=== PATIENT | male | born 1990 | race Caucasian/White ===

== ENCOUNTER 2017-07-25 15:14 | Inpatient (IN) | payer OTHER ==
[~2017-07-25] VITALS: Ht 185.4 cm; Wt 70.5 kg
[2017-07-25] VITALS (13 sets, daily range): BP systolic 103–128; BP diastolic 47–68; PULSE 66–92; RESP 10–19; TEMP 98; Ht 185.4 cm; Wt 70.5 kg
[2017-07-25] MEDS ORDERED: ONDANSETRON 4 MG INJ IV STA (15:40)
[2017-07-25] MEDS ORDERED: HYDROmorphONE 1 MG/ML SYG IV STA (15:40)
[2017-07-25] MEDS ORDERED: SOD CHLORIDE 0.9% 1,000 ML IV STA (15:40)
[2017-07-25] MEDS ORDERED: ACETAMINOPHEN 500 MG TAB PO STA (15:41)
[2017-07-25 16:02] LABS: ABNORMAL IP MESSAGE 1; BASOPHILS % 0.2 % (0.0-2.0); HEMATOCRIT 42.9 % (42.0-52.0); LYMPHOCYTES # 1.3 10^3/ul (0.8-2.9); MEAN CORPUSCULAR HEMOGLOBIN 29.1 pg (29.0-33.0); MEAN CORPUSCULAR VOLUME 83.1 fl (82.0-101.0); MEAN PLATELET VOLUME 9.9 fl (7.4-10.4); MONOCYTE # 2.1 10^3/ul (0.3-0.9); MONOCYTES % 9.6 % (0.0-11.0); NEUTROPHIL # 18.3 10^3/ul (1.6-7.5); NEUTROPHILS % 83.7 % (39.0-77.0); PLATELET COUNT 180 10^3/UL (140-415); POSITIVE DIFF @See below; RED BLOOD COUNT 5.16 10^6/ul (4.70-6.10); RED CELL DISTRIBUTION WIDTH 12.4 % (11.5-14.5); WHITE BLOOD COUNT 21.9 10^3/ul (4.8-10.8)
--- NOTE | 2017-07-25 16:02 | ERD ---
ER Documentation Chief Complaint Date/Time DATE: 07/25/17 TIME: 15:56 Chief Complaint pt bib family with c/o right sided abd pain with vomiting since this am HPI 27-year-old male presents to the emergency department complaining of severe sharp constant right lower quadrant abdominal pain since this morning. Patient states that it has started in the umbilical region and migrated to the right. He admits to chills/fever, nonbilous nonbloody vomiting, decreased appetite. Last meal 6a ROS All systems reviewed and are negative except as per history of present illness. Allergies Allergies: Coded Allergies: No Known Allergy (Unverified , 07/25/17) Physical Exam Vitals Vital Signs Date Time Temp Pulse Resp B/P Pulse Ox O2 Delivery O2 Flow Rate FiO2 07/25/17 15:17 99.8 89 18 132/83 99 Physical Exam Const: WDWN NAD Head: Atraumatic Eyes: Normal Conjunctiva ENT: Normal External Ears, Nose and Mouth. Neck: Full range of motion..~ No meningismus. Resp: Clear to auscultation bilaterally Cardio: Regular rate and rhythm, no murmurs Abd: Soft, tender to palpation RLQ, +mcburney's, rebound tenderness. non distended. Normal bowel sounds Skin: No petechiae or rashes Back: No midline or flank tenderness Ext: No cyanosis, or edema Neur: Awake and alert Psych: Normal Mood and Affect Result Diagram: 07/25/17 1555 07/25/17 1555 Results 24 hrs Laboratory Tests Test 07/25/17 15:55 White Blood Count 21.910^3/ul Red Blood Count 5.1610^6/ul Hemoglobin 15.0g/dl Hematocrit 42.9% Mean Corpuscular Volume 83.1fl Mean Corpuscular Hemoglobin 29.1pg Mean Corpuscular Hemoglobin Concent 35.0g/dl Red Cell Distribution Width 12.4% Platelet Count 48614^3/UL Mean Platelet Volume 9.9fl Neutrophils % 83.7% Lymphocytes % 6.0% Monocytes % 9.6% Eosinophils % 0.0% Basophils % 0.2% Nucleated Red Blood Cells % 0.0/100WBC Neutrophils # 18.310^3/ul Lymphocytes # 1.310^3/ul Monocytes # 2.110^3/ul Eosinophils # 0.010^3/ul Basophils # 0.010^3/ul Nucleated Red Blood Cells # 0.010^3/ul Sodium Level 140mmol/L Potassium Level 4.2mmol/L Chloride Level 103mmol/L Carbon Dioxide Level 26mmol/L Anion Gap 15 Blood Urea Nitrogen 22mg/dl Creatinine 1.13mg/dl Glucose Level 155mg/dl Calcium Level 9.8mg/dl Total Bilirubin 1.5mg/dl Direct Bilirubin 0.00mg/dl Indirect Bilirubin 1.5mg/dl Aspartate Amino Transf (AST/SGOT) 34IU/L Alanine Aminotransferase (ALT/SGPT) 43IU/L Alkaline Phosphatase 109IU/L Total Protein 8.3g/dl Albumin 4.8g/dl Globulin 3.50g/dl Albumin/Globulin Ratio 1.37 Lipase 65U/L Current Medications Medications (Trade) Dose Ordered Sig/Jennifer Route PRN Reason Start Time Stop Time Status Last Admin Dose Admin Sodium Chloride (NS) 1,000 ml @ 1,000 mls/hr Q1H STAT IV 07/25/17 15:40 07/25/17 16:39 DC 07/25/17 15:58 Hydromorphone HCl (Dilaudid) 1 mg ONCE STAT IV 07/25/17 15:40 07/25/17 15:41 DC 07/25/17 15:58 Ondansetron HCl (Zofran Inj) 4 mg ONCE STAT IV 07/25/17 15:40 07/25/17 15:41 DC 07/25/17 15:58 Acetaminophen 1000 mg 1,000 mg ONCE STAT PO 07/25/17 15:41 07/25/17 15:42 DC 07/25/17 16:02 Piperacillin Sod/ Tazobactam Sod (Zosyn 3.375gm/ 100 ml (Pmx)) 100 ml @ 200 mls/hr ONCE STAT IVPB 07/25/17 16:43 07/25/17 17:12 Procedures/MDM 27-year-old male presents to emergency department with early appendicitis, there is no evidence of abscess or perforation. Patient is aseptic and stable at this time In the ED, IV access established, patient was given 1 L of fluids, Dilaudid and Zofran. Lab work was drawn,patient had leukocytosis. No liver, renal or electrolyte abnormality. I have consulted my supervising physician who will consult for surg and admit to panel CT abd pelvis without contrast 1. Mildly enlarged appendix containing appendicolith with subtle surrounding inflammatory changes. This could represent early appendicitis. Clinical correlation and repeat scan with contrast would be useful. 2. Mild atrophy of the left kidney. No urolithiasis. No hydronephrosis. Departure Diagnosis: Primary Impression: Appendicitis Condition: Serious HUSEYIN POWERS PA-C Jul 25, 2017 16:02
[2017-07-25 16:23] LABS: ALBUMIN 4.8 g/dl (3.3-4.9); ALBUMIN/GLOBULIN RATIO 1.37; BILIRUBIN,INDIRECT 1.5 mg/dl (0-1.1); BILIRUBIN,TOTAL 1.5 mg/dl (0.2-1.3); CALCIUM 9.8 mg/dl (8.4-10.2); CREATININE 1.13 mg/dl (0.61-1.24); POTASSIUM 4.2 mmol/L (3.5-5.1); TOTAL PROTEIN 8.3 g/dl (6.1-8.1)
--- NOTE | 2017-07-25 16:26 | RADRPT ---
PROCEDURE: CT Abdomen and Pelvis without contrast. CLINICAL INDICATION: Abdominal pain with nausea. TECHNIQUE: CT scan of the abdomen and pelvis without contrast was performed on a multidetector hig h-resolution CT scanner. The patient was scanned without intravenous contrast. Coronal and sagittal reformatted images were obtained from the axial source images. Images were reviewed on a high-resol Interactive [employer] PACS workstation. The total exam CTDI equals 6.47 mGy and the total exam DLP equals 371.85 mGy -cm. One or more of the following dose reduction techniques were used: Automated exposure control. Adjustment of the mA and/or kV according to patient size. Use of iterative reconstruction technique. COMPARISON: None FINDINGS: CT abdomen: The lung bases are clear. The heart size is normal, without pericardial thickening or effusion. Th e liver is normal in size and density without focal mass or intrahepatic biliary dilatation. The sp demar is normal in size and homogeneous in density. The stomach is partially collapsed, but is gross ly unremarkable. The pancreas as visualized is normal. The gallbladder is unremarkable. There is n o evidence for biliary dilatation. The adrenal glands are symmetric and normal. There is mild atrophy of the left kidney. There is no urolithiasis. There is no hydronephrosis. No c ontour deforming renal mass is identified. The aorta is of normal caliber. There is no retroperitoneal lymphadenopathy. The altagracia hepatis reg ion is clear. The bowel and mesentery, as visualized, are equally unremarkable. CT pelvis: Mildly enlarged appendix containing appendicolith with subtle surrounding inflammatory changes are i dentified. The small bowel loops situated within the pelvis are unremarkable. The pelvic organs are normal. The pelvic sidewalls and inguinal regions are clear. The sigmoid colon and rectum are unr emarkable. No mass, lymphadenopathy, or free fluid is seen. No acute inflammation is seen. No os teolytic or osteoblastic lesion is detected. IMPRESSION: The study is very limited due to absence of intra-abdominal fat, IV and oral contrast. 1. Mildly enlarged appendix containing appendicolith with subtle surrounding inflammatory changes. This could represent early appendicitis. Clinical correlation and repeat scan with contrast would be useful. 2. Mild atrophy of the left kidney. No urolithiasis. No hydronephrosis. RPTAT: BB .Rula Cisneros MD, MD Date Time Electronically viewed and signed by .Rula Cisneros MD, MD on 07/25/2017 16:25 .O/
[2017-07-25] MEDS ORDERED: PIPER-TAZO 3.375 GM IV (PMX) 100 ML IVPB STA (16:43)
--- NOTE | 2017-07-25 17:11 | HP ---
Date/Time of Note Date/Time of Note DATE: 07/25/17 TIME: 17:08 Assessment/Plan VTE Prophylaxis VTE Prophylaxis Intervention: SCD's Assessment/Plan Chief Complaint/Hosp Course 1. Sepsis secondary to acute appendicitis Surgery consult obtained in the ER Zosyn IV Pain control N.p.o. and IV fluid Prophylaxis: SCDs Problems: HPI/ROS Admit Date/Time Admit Date/Time July 25, 2017 Hx of Present Illness Patient is a 27-year-old male with medical history of ureteral surgery at the age of 5 otherwise no significant medical history. Patient presents with abdominal pain in the right lower quadrant that began this morning, it was associated with nausea and vomiting. In the ED patient was found to have acute appendicitis via CT. Patient has no other complaints this time. ROS Constitutional: improved, no complaints Eyes: no complaints ENT: no complaints Respiratory: no complaints Cardiovascular: no complaints Gastrointestinal: nausea, pain, vomiting Genitourinary: no complaints Musculoskeletal: no complaints Skin: no complaints Neurologic: no complaints Endocrine: no complaints Lymphatic: no complaints Psychological: nl mood/affect, no complaints Immunologic: no complaints PMH/Family/Social Past Medical History Medical History: no pertinent history Past Surgical History Surgery of the ureter age of 5 Family History Significant Family History: no pertinent family hx Social History Alcohol Use: none Smoking Status: Never smoker Drug Use: none Exam/Review of Systems Vital Signs Vitals Vital Signs Date Time Temp Pulse Resp B/P Pulse Ox O2 Delivery O2 Flow Rate FiO2 07/25/17 15:17 99.8 89 18 132/83 99 Exam Constitutional: alert, oriented Head: normocephalic Respiratory: clear to auscultation Cardiovascular: regular rate and rhythm Gastrointestinal: soft, tender (Right lower quadrant), No distended Musculoskeletal: nl extremities to inspection Labs Result Diagram: 07/25/17 1555 07/25/17 1555 LUIS HUDSON Jul 25, 2017 17:11
[2017-07-25] MEDS ORDERED: NACL 0.9% 3 ML SYG IV SCH (17:30)
[2017-07-25] MEDS ORDERED: HYDROCODONE/APAP (5/325) TAB PO PRN (17:30)
[2017-07-25] MEDS ORDERED: morphine 2 MG INJ IV PRN ×2 (17:30→19:30)
[2017-07-25] MEDS ORDERED: ONDANSETRON 4 MG INJ IV PRN ×3 (17:30→19:30)
[2017-07-25] MEDS ORDERED: ACETAMINOPHEN 325 MG TAB PO PRN (17:30)
[2017-07-25] MEDS ORDERED: ZOLPIDEM 5 MG TAB PO PRN (17:30)
[2017-07-25 17:54] LABS: INR 1.17; PT RATIO 1.2
[2017-07-25] MEDS ORDERED: MIDAZOLAM 1 MG/ML 2 ML INJ ONE (17:54)
[2017-07-25] MEDS ORDERED: ROCURONIUM 50 MG INJ ONE (17:54)
[2017-07-25] MEDS ORDERED: ROPIVACAINE 0.2% 20 ML VIAL ONE (17:54)
[2017-07-25] MEDS ORDERED: PROPOFOL 20 ML ONE (17:54)
[2017-07-25 17:55] LABS: PARTIAL THROMBOPLASTIN TIME 25.1 Sec (25.0-35.0)
[2017-07-25] MEDS ORDERED: BUPIVACAINE 0.5%/EPI (SDV) 30 ML INJ ONE (18:00)
--- NOTE | 2017-07-25 18:24 | CONS ---
Date/Time of Note Date/Time of Note DATE: 07/25/17 TIME: 18:19 Assessment/Plan Assessment/Plan Additional Assessment/Plan Acute appendicitis Plan: Laparoscopic appendectomy possible open. The procedure, outcomes, indications, alternatives and risks have been detailed to the patient who has an excellent understanding of the nature of his situation and agrees to the proposed plan of therapy as outlined. Consultation Date/Type/Reason Admit Date/Time July 25, 2017 Date of Consultation: Jul 25, 2017 Reason for Consultation Acute appendicitis Hx of Present Illness The patient is an otherwise healthy 27-year-old male who presents with 1 day history of abdominal pain which had intensified in severity than localized to the right lower quadrant. The emergency room his white blood cell count was 21, 900, and CT was compatible with acute appendicitis. The patient was admitted, and surgical consultation was requested in that regard. Eyes: no complaints ENT: no complaints Respiratory: no complaints Cardiovascular: no complaints Gastrointestinal: nausea, pain (Right lower quadrant), vomiting Genitourinary: no complaints Musculoskeletal: no complaints Skin: no complaints Neurologic: no complaints Lymphatic: no complaints Psychological: nl mood/affect, no complaints Immunologic: no complaints Past Medical History Medical History: no pertinent history Past Surgical History Patient had ureteral surgery during childhood Family History Significant Family History: no pertinent family hx Social History Alcohol Use: none Smoking Status: Never smoker Drug Use: none, marijuana Exam/Review of Systems Vital Signs Vitals Vital Signs Date Time Temp Pulse Resp B/P Pulse Ox O2 Delivery O2 Flow Rate FiO2 07/25/17 17:00 98.0 70 20 101/54 98 Room Air Exam Constitutional: alert Psych: no complaints Head: normocephalic Eyes: nl conjunctiva ENMT: nl external ears & nose Neck: supple Respiratory: clear to auscultation Cardiovascular: regular rate and rhythm Gastrointestinal: other (There is a well-healed Pfannenstiel incision), tender (Tender right lower quadrant with guarding but no rebound) Genitourinary - Male: nl penis Musculoskeletal: nl extremities to inspection Extremities: normal pulses Neurological: VAMP MARKER II-XII intact Skin: nl turgor Lymph: nl lymph nodes Results Result Diagram: 07/25/17 1555 07/25/17 1555 Results 24 hrs Laboratory Tests Test 07/25/17 15:55 White Blood Count 21.9 H Red Blood Count 5.16 Hemoglobin 15.0 Hematocrit 42.9 Mean Corpuscular Volume 83.1 Mean Corpuscular Hemoglobin 29.1 Mean Corpuscular Hemoglobin Concent 35.0 Red Cell Distribution Width 12.4 Platelet Count 180 Mean Platelet Volume 9.9 Neutrophils % 83.7 H Lymphocytes % 6.0 L Monocytes % 9.6 Eosinophils % 0.0 Basophils % 0.2 Nucleated Red Blood Cells % 0.0 Neutrophils # 18.3 H Lymphocytes # 1.3 Monocytes # 2.1 H Eosinophils # 0.0 Basophils # 0.0 Nucleated Red Blood Cells # 0.0 Prothrombin Time 15.0 H Prothrombin Time Ratio 1.2 INR International Normalized Ratio 1.17 Activated Partial Thromboplast Time 25.1 Sodium Level 140 Potassium Level 4.2 Chloride Level 103 Carbon Dioxide Level 26 Anion Gap 15 Blood Urea Nitrogen 22 H Creatinine 1.13 Glucose Level 155 Calcium Level 9.8 Total Bilirubin 1.5 H Direct Bilirubin 0.00 Indirect Bilirubin 1.5 H Aspartate Amino Transf (AST/SGOT) 34 Alanine Aminotransferase (ALT/SGPT) 43 Alkaline Phosphatase 109 Total Protein 8.3 H Albumin 4.8 Globulin 3.50 H Albumin/Globulin Ratio 1.37 Lipase 65 Medications Medications Current Medications Potassium Chloride/Dextrose/ Sod Cl (D5-1/2ns + KCl 20 Meq) 1,000 ml @ 100 mls/ hr Q10H IV ; Start 07/25/17 at 17:11 Ondansetron HCl (Zofran Inj) 4 mg Q6H PRN IV NAUSEA AND/OR VOMITING; Start at 17:30 Acetaminophen (Tylenol Tab) 650 mg Q6H PRN PO PAIN LEVEL 1-3 OR FEVER; Start at 17:30 Acetaminophen/ Hydrocodone Bitart ([place] (5/325)) 1 tab Q6H PRN PO MODERATE PAIN LEVEL 4-6; Start 07/25/17 at 17:30 Morphine Sulfate (morphine) 2 mg Q3 PRN IV SEVERE PAIN LEVEL 7-10; Start at 17:30 Zolpidem Tartrate 5 mg 5 mg QHS PRN PO SLEEP; Start 07/25/17 at 17:30 Piperacillin Sod/ Tazobactam Sod (Zosyn 3.375gm/ 100 ml (Pmx)) 100 ml @ 200 mls /hr Q6 IVPB ; Start 07/26/17 at 00:00 SAL AYALA MD Jul 25, 2017 18:24
--- NOTE | 2017-07-25 18:35 | QN ---
Documentation Comment I have seen and evaluated the patient along with the PA and/or [facility] PATROLLER provider. I agree with the evaluation and plan of care. Please see their documentation for full ER course and evaluation. Initial presentation: The patient presents with right lower quadrant abdominal pain On exam: General: Well-developed well-nourished man, moderate discomfort, febrile Abdominal: Focal tenderness the right lower quadrant with a positive Cunha sign Assessment and plan: Suspect acute appendicitis, CT scan of the abdomen and pelvis was performed that was positive for acute appendicitis, labs revealed leukocytosis, and patient was treated with IV fluids, analgesics, and IV Zosyn. Accepting care team and consultations: I discussed the current laboratory data, diagnostic imaging and emergency care provided. Admitting team: Dr. Fuller Admitting team indication: Insurance directed Consulting services: Surgery, Dr. Albrecht Diagnostic impression: Acute appendicitis YE STUART MD Jul 25, 2017 18:35
[2017-07-25] MEDS ORDERED: DEXAMETHASONE 4 MG/ML 1 ML INJ ONE (18:59)
[2017-07-25] MEDS ORDERED: KETOROLAC 30 MG INJ ONE (18:59)
[2017-07-25] MEDS ORDERED: CEFAZOLIN 1 GM INJ ONE (18:59)
[2017-07-25] MEDS ORDERED: ONDANSETRON 4 MG INJ ONE ×2 (18:59→19:31)
[2017-07-25] MEDS ORDERED: METOCLOPRAMIDE 10 MG INJ ONE (18:59)
[2017-07-25] MEDS ORDERED: NEOSTIGMINE 3 MG/3 ML SYRINGE ONE (19:02)
[2017-07-25] MEDS ORDERED: GLYCOPYRROLATE 0.4 MG INJ ONE (19:02)
[2017-07-25] MEDS ORDERED: MEPERIDINE 100 MG INJ ONE (19:12)
--- NOTE | 2017-07-25 19:17 | OPR ---
Date/Time of Note Date/Time of Note DATE: 07/25/17 TIME: 19:13 Operative Report Procedure Date: Jul 25, 2017 Preoperative Diagnosis Acute appendicitis Postoperative Diagnosis Acute appendicitis without localized peritonitis Operation Performed Laparoscopic appendectomy Surgeon Aquilino Ayala MD Anesthesia Type: general Anesthesiologist: JERMAIN MELTON MD Estimated Blood Loss: 0 - 10 ml's Transfusion Required: no Specimens Appendix Grafts/Implants: none Complications: no Pt Condition Post Procedure: stable Disposition: PACU Indications Acute appendicitis Operative\Procedure Findings Acutely inflamed intraperitoneal appendix without localized peritonitis Procedure Description After satisfactory general endotracheal anesthesia was achieved, the abdomen was insufflated with carbon dioxide through an umbilical Veress needle to 15 mmHg pressure. Veress needle was removed and the umbilical incision extended to 5 mm through which a 5 mm trocar was placed. A 5 mm 0 lens was placed. Laparoscopy showed an acutely inflamed into peritoneal appendix without localized peritonitis. Under direct visualization a 5 mm suprapubic trocar was placed through the middle of the Pfannenstiel scar. A 12 mm trocar was placed through the transverse scar midway between the umbilicus and the Pfannenstiel incision. A window was made in the mesoappendix through which a vascular linear cutter was placed across the base of the cecum, closed and fired, disconnecting the appendix from the cecum. 2 more firings of the vascular linear cutter across the mesoappendix fully freed the appendix. The appendix was placed intact into an Endo Catch removed by the 12 mm port site. Hemostasis of the staple lines was total and irrigant returned clear. The abdomen was then desufflated and the trochars removed. Fascial defect at the 12 mm port site was closed with 2 sutures of 0 Vicryl. The skin punctures were infiltrated with 30 cc of 0.5% Marcaine with epinephrine and closed with faith. Sponge and needle counts were reported as correct 2. AQUILINO AYALA MD Jul 25, 2017 19:17
[2017-07-25] MEDS ORDERED: METOCLOPRAMIDE 10 MG INJ IV PRN (19:30)
[2017-07-25] MEDS ORDERED: DIPHENHYDRAMINE 50 MG INJ IV PRN (19:30)
[2017-07-25] MEDS ORDERED: FENTAnyl 50 MCG/ML VIAL IV PRN ×3 (19:30)
[2017-07-25] MEDS ORDERED: LABETALOL HCL 20MG INJ IV PRN (19:30)
[2017-07-25] MEDS ORDERED: MEPERIDINE 25 MG INJ IV PRN (19:30)
[2017-07-25] MEDS ORDERED: HYDROmorphONE (0.2 MG/ML) 10ML SYG IV PRN ×3 (19:30)
[2017-07-25] MEDS ORDERED: EPHEDrine SULFATE 50 MG/5 ML SYG IV PRN (19:30)
[2017-07-25] MEDS ORDERED: OXYCODONE/ACETAMINOPHEN (5/325) TAB PO PRN ×2 (19:30)
[2017-07-25] MEDS ORDERED: MEPERIDINE 25 MG INJ ONE (19:30)
[2017-07-25] MEDS ORDERED: HYDROmorphONE (0.2 MG/ML) 10ML SYG IV ONE (19:31)
[2017-07-25] MEDS: D5W-0.45 NACL + KCL 20 MEQ 1,000 ML IV SCH (19:51)
[2017-07-25] MEDS: PIPER-TAZO 3.375 GM IV (PMX) 100 ML IVPB SCH (23:49)
[2017-07-26 01:57] VITALS: BP 97/54; RESP 16
[2017-07-26] MEDS: PIPER-TAZO 3.375 GM IV (PMX) 100 ML IVPB SCH ×2 (05:29→12:00)
[2017-07-26 06:32] LABS: BASOPHILS % 0.1 % (0.0-2.0); HEMATOCRIT 38.1 % (42.0-52.0); HEMOGLOBIN 13.3 g/dl (14.0-18.0); LYMPHOCYTES # 0.6 10^3/ul (0.8-2.9); LYMPHOCYTES % 4.9 % (15.0-51.0); MEAN CORPUSCULAR HEMOGLOBIN 30.1 pg (29.0-33.0); MEAN CORPUSCULAR HGB CONC 34.9 g/dl (32.0-37.0); MEAN CORPUSCULAR VOLUME 86.2 fl (82.0-101.0); MEAN PLATELET VOLUME 10.7 fl (7.4-10.4); MONOCYTE # 1.1 10^3/ul (0.3-0.9); MONOCYTES % 9.1 % (0.0-11.0); NEUTROPHIL # 10.5 10^3/ul (1.6-7.5); NEUTROPHILS % 85.4 % (39.0-77.0); PLATELET COUNT 154 10^3/UL (140-415); RED BLOOD COUNT 4.42 10^6/ul (4.70-6.10); RED CELL DISTRIBUTION WIDTH 12.5 % (11.5-14.5); WHITE BLOOD COUNT 12.3 10^3/ul (4.8-10.8)
[2017-07-26] MEDS: D5W-0.45 NACL + KCL 20 MEQ 1,000 ML IV SCH ×2 (06:47→13:11)
[2017-07-26 07:10] LABS: ALBUMIN 3.6 g/dl (3.3-4.9); ALBUMIN/GLOBULIN RATIO 1.09; BILIRUBIN,INDIRECT 1.1 mg/dl (0-1.1); BILIRUBIN,TOTAL 1.1 mg/dl (0.2-1.3); CALCIUM 9.2 mg/dl (8.4-10.2); CREATININE 1.04 mg/dl (0.61-1.24); MAGNESIUM 1.9 mg/dl (1.7-2.5); PHOSPHORUS 4.6 mg/dl (2.5-4.9); POTASSIUM 4.7 mmol/L (3.5-5.1); TOTAL PROTEIN 6.9 g/dl (6.1-8.1)
[2017-07-26 07:20] VITALS: BP 106/61; RESP 16
--- NOTE | 2017-07-26 10:36 | PN ---
Date/Time of Note Date/Time of Note DATE: 07/26/17 TIME: 10:35 Assessment/Plan Lines/Catheters IV Catheter Type (from [facility]): Peripheral IV Rai in Place (from [facility]): No Assessment/Plan Chief Complaint/Hosp Course The patient is an otherwise healthy 27-year-old male who presents with 1 day history of abdominal pain which had intensified in severity than localized to the right lower quadrant. The emergency room his white blood cell count was 21, 900, and CT was compatible with acute appendicitis. The patient was admitted, and surgical consultation was requested in that regard. Problems: Assessment/Plan Excellent postoperative recovery Patient is cleared for discharge home today I have left him a prescription for [place] and Keflex Office follow-up 1 week Subjective 24 Hr Interval Summary Postoperative day #1 Patient markedly symptomatically improved Exam/Review of Systems Vital Signs Vitals Vital Signs Date Time Temp Pulse Resp B/P Pulse Ox O2 Delivery O2 Flow Rate FiO2 07/26/17 07:20 97.7 59 16 106/61 97 07/25/17 20:13 Room Air Intake and Output 07/25/17 07/25/17 07/26/17 15:00 23:00 07:00 Intake Total 800 ml 1470 ml Output Total 10 ml Balance 790 ml 1470 ml Results Result Diagram: 07/26/17 0425 07/26/17 0425 SAL AYALA MD Jul 26, 2017 10:36
--- NOTE | 2017-07-26 11:02 | PDOCDIS ---
Discharge Instructions CONDITION Patient Condition: Good HOME CARE INSTRUCTIONS: Diet Instructions: Regular ACTIVITY: Activity Restrictions: Slowly Increase Activity FOLLOW UP/APPOINTMENTS Follow-up Plan F/U WITH DR AYALA OF SURGERY IN 1 WEEK LUIS HUDSON Jul 26, 2017 11:02
[2017-07-26] MEDS ORDERED: CEPH-443 PO (12:21)
[2017-07-26] MEDS ORDERED: HYDR-906 PO (12:21)
[2017-07-26 14:02] VITALS: BP 113/54; RESP 16
--- NOTE | 2017-07-26 15:54 | DS ---
Date/Time of Note Date/Time of Note DATE: 07/26/17 TIME: 15:51 Discharge Summary Admission/Discharge Info Admit Date/Time Jul 25, 2017 at 16:44 Discharge Date/Time Jul 26, 2017 at 14:25 Discharge Diagnosis 1. Sepsis secondary to acute appendicitis status post laparoscopic appendectomy Status post Zosyn IV DC with Keflex and [place] Patient Condition: Good Hospital Course Patient is a 27-year-old male with medical history of ureteral surgery at the age of 5 otherwise no significant medical history. Patient presents with abdominal pain in the right lower quadrant and was found to have acute appendicitis via CT. patient was taken to the OR and had a laparoscopic appendectomy, patient was stable on postop day #1 was clear for DC per surgery. On the day of discharge patient's vitals, labs and physical exam are stable patient had no further acute complaints and questions are answered. Home Meds Active Scripts Cephalexin* (Keflex*) 500 Mg Capsule, 500 MG PO Q6, #28 CAP Prov:LUIS HUDSON 07/26/17 Hydrocodone/Acetaminophen ([place] 5-325 Tablet) 1 Each Tablet, 1 EACH PO Q4 for PAIN, #40 TAB Prov:LUIS HUDSON 07/26/17 Follow-up Plan F/U WITH DR AYALA OF SURGERY IN 1 WEEK Primary Care Provider Care Physician No Primary Time spent on discharge: > 30 minutes LUIS HUDSON Jul 26, 2017 15:54
== END 2017-07-26 14:25 | disposition home or self-care (01) | DRG 854 ==
LOC: FTE 15:14 → PP2 16:44
PROVIDERS: ADMIT Internal Medicine; ATTEND Internal Medicine
PROC: 0DTJ4ZZ Resection of Appendix, Percutaneous Endoscopic Approach (ICD-10-PCS; principal; 2017-07-25 17:30)
DX: A41.9 Sepsis, unspecified organism (principal); K35.80 Unspecified acute appendicitis
CPT/HCPCS: 36415; 74176; 80053; 83036; 83690; 83735; 84100; 85025; 85610; 85730; 96374; 96375; J0690; J1100; J1170; J1885; J2175; J2250; J2270; J2405; J2543; J2710; J2765; J2795; J3010; J3480; J7030